=== PATIENT | male | born 1965 | race Caucasian/White ===

== ENCOUNTER 2017-05-23 02:03 | Inpatient (IN) | payer MEDICARE, MEDICAID ==
[~2017-05-23] VITALS: Ht 170.2 cm; Wt 55.3 kg
--- NOTE | ~2017-05-23 | OR ---
PATIENT'S NAME: NGOZI ORTIZ [facility] AGE: 52 Y [address] ROOM: [address] [address] LOCATION: [facility] ADMIT DATE: 05/23/2017 OR/Procedure Report DISCHARGE DATE: FAMILY PHYSICIAN: KAUSHIK ANDREW DO ATTENDING PHYSICIAN: CLARK MIRANDA SURGEON: Nicolás Skelton MD CRUMB PACKER: DATE OF PROCEDURE: 05/24/2017 PROCEDURE: The patient had the procedure of a trigger point injection given on 05/24/2017 at 2145 hours. PROCEDURE IN DETAIL: This procedure of a "trigger point" is a combination of 1% lidocaine 8 mL along with 40 mg of 1 mL of methylprednisolone (Kenalog). The indication for this is pain at 2 locations, one in the left glenohumeral joint of the shoulder associated with local tenderness, pain due to overuse, as well as into the right lumbar paraspinal muscle lateral to midline at the L3 region. With a 10 mL syringe and a 26-gauge needle, the medications were given into the locations as described with the patient having no adverse effect. NICOLÁS SKELTON MD JRM/modl /[id number] d: 05/25/17 0009 t: 06/11/17 1632, OPERATIVE SUMMARY
--- NOTE | ~2017-05-23 | DS ---
PATIENT'S NAME: NGOZI ORTIZ [facility] AGE: 52 Y [address] ROOM: [address] [place], [place] [address] [place] [facility] [place]: 05/23/2017 Discharge Summary DISCHARGE DATE: 06/04/2017 FAMILY PHYSICIAN: Cliff [place] DO ATTENDING PHYSICIAN: Nirav Venegas ATTENDING ON THE DAY OF DISCHARGE: Dr. Dara Lundberg. CONSULTING PHYSICIAN: Dr. Jones and Dr. Skelton, Neurology. DISCHARGE DIAGNOSES: 1. Acute encephalopathy, suspect secondary to opiate withdrawal. 2. Chronic pain syndrome. 3. Hypertension, essential. 4. Multiple sclerosis, advanced. 5. Tobaccoism. 6. Rhabdomyolysis, mild. 7. Depression. DISCHARGE MEDICATIONS: 1. Norvasc 5 mg p.o. daily. 2. Celexa 20 mg p.o. q.a.m. 3. Lisinopril 20 mg p.o. q.a.m. 4. Lopressor 50 mg p.o. twice daily. 5. Nicotine transdermal patch 21 mg transdermally daily. 6. Seroquel 25 mg p.o. q.h.s. 7. Tylenol 650 mg p.o. q.6 hours p.r.n. headache. 8. Zyprexa 5 mg p.o. q.h.s. p.r.n. agitation. PERTINENT RADIOLOGIC DATA: 1. MRI of the brain with and without contrast on 05/23/2017 showed changes of extensive chronic bubble growth with a stable overall appearance when compared to that from August 2016. No enhancing mass, midline shift, abnormal extra-axial fluid collection, and no findings of acute ischemic infarct. There was generalized atrophic changes. 2. Chest x-ray on 05/23/2017, no acute infiltrate. 3. Plain films of the sacrum, right hip, left hip on 05/25/2017 showed no acute fracture. These were taken secondary to a fall. PERTINENT LABORATORY DATA: Urine drug screen was positive for opiates on 05/26/2017. CPK was elevated on 05/23/2017 at 771, this decreased to 775 the following day. CK-MB was elevated 8.8, again this was down to 7.2 on serial labs. TSH was normal at 0.898, free T4 normal at 0.8. Vitamin B12 was normal at 308. PATIENT'S NAME: NGOZI ORTIZ [facility] AGE: 52 Y [address] ROOM: [address] [place], [place] [address] [place] [facility] [place]: 05/23/2017 Discharge Summary DISCHARGE DATE: 06/04/2017 FAMILY PHYSICIAN: Cliff [place] DO ATTENDING PHYSICIAN: Nirav Venegas Laboratory data upon admission showed sodium slightly elevated at 148, potassium 4.0, chloride 119, CO2 of 20. LFTs within normal limits. GFR was greater than 90. CBC showed white count 7200, hemoglobin 13.1, MCV 99, platelets 288. HOSPITAL COURSE: Please refer to the admitting H and P dictated by Dr. Venegas for more detailed outline of his presentation. Dr. Venegas did visit with Dr. Skelton about coordinating care. Differential for encephalopathy initially included opioid withdrawal versus multiple sclerosis exacerbation. Dr. Skelton had seen the patient in consultation on 05/24/2017. He did not believe he was having multiple sclerosis exacerbation at that time. There was a concern, however, he was able to be continued to care for himself. Dr. Jones had seen the patient in consultation secondary to the mild elevated CPK numbers, and they also evaluated him with baseline transthoracic echo. Study was within normal limits with an ejection fraction of 65%-70%. A chest x-ray was also obtained and was negative for infiltrate. The UA showed no evidence of infection. Labs were normal in terms of thyroid function, kidney function, liver function, and B12 levels. Troponins were normal. It was felt that the elevated CK was secondary to a low-degree rhabdomyolysis. The patient was admitted on PCU throughout this hospitalization and ultimately felt stable enough to transfer over to the Med-Surg Unit. The patient continued to do fairly well throughout his hospitalization. We did have some issues with hypertension, and amlodipine and lisinopril and beta-pedro were used to help control this. We felt his encephalopathy continued to improve. His chronic pain continued to be a concern, however, the patient seemed quite comfortable throughout his whole hospitalization without any narcotics. The patient was given Seroquel to help in times of agitation. This was dosed nightly and seemed to sha well with the patient. The patient was placed on fall precautions. Citalopram was added to his regimen on 05/27/2017. Discharge planning was being talked about and felt that the patient would best be well served in the alf facility setting. The patient's pain continued to be stable throughout hospitalization while holding his opiates. Ultimately, arrangements were made for wound care management for the patient to be placed at [facility]. DISPOSITION: The patient is being discharged to [facility] on 06/04/2017. He should follow up with Dr. [place] as primary care provider and can see Dr. Skelton in the future as needed in terms of his MS. At this point, we would continue to hold opioid on this patient. The patient is weightbearing as tolerated but should continue to work with therapies and use fall precautions. O2 may be used to keep sats greater than 90%. The patient verbalized understanding of this plan. Thank you for allowing us to help care for this patient. Discharge of this patient took less than 30 minutes. PATIENT'S NAME: NGOZI ORTIZ [facility] AGE: 52 Y [address] ROOM: [place] [address] [place] [facility] [place]: 05/23/2017 Discharge Summary DISCHARGE DATE: 06/04/2017 FAMILY PHYSICIAN: Cliff [place] DO ATTENDING PHYSICIAN: Nirav Venegas RICHARD MEDLEY PA-C FOR MD ALYSSA MARSHALLM/deepakl /[id number] CC: MD Cliff Nelson DO Panayotis-Alain Efstratiou, MD d: 06/05/17 0323 t: 06/07/17 1949, DISCHARGE SUMMARY
--- NOTE | ~2017-05-23 | ECHO ---
Transthoracic Echocardiography Report (TTE) Demographics Patient Name NGOZI ORTIZ Date of Study 05/23/2017 Patient Number [id number] Visit Number [id number] Date of 1965 Room Number [id number] Gender Male Number Age 52 year(s) Referring Arthur Carrillo MD Messaging Architect Nayely Mcconnell, Physician RT,RVT,RDCS Physician Interpreting Karen Anaya Soccer Commentator Physician Rikki JULES Supervising Ordering Arthur Carrillo MD, MD/MLP Physician Nurse [facility] Associate Conclusions Contractility Score Summary Normal Left Ventricular contractility was noted. Summary The estimated left ventricular ejection fraction is 65-70%. Mild concentric left ventricular hypertrophy. Trivial tricuspid regurgitation by color Doppler. Normal right atrial size. The interatrial septum appears aneurysmal. Procedure Type of Study TTE procedure:2D Echocardiogram, M-Mode, Doppler , Color Doppler. Procedure Date Date: 05/23/2017 Start: 01:03 PM Study Location: Inpatient Portable Technical Quality: Limited visualization due to body habitus. Indications:Elevated cardiac enzymes. Additional Indications:Altered mental status. Appropriate Use Criteria: 9 Patient Status: Routine HR: 72 bpm BP: 151/86 mmHg M-Mode/2D Measurements LV Diastolic Dimension: 4.74 cm LV Systolic Dimension: 2.52 cm LV Septum Diastolic: 1.15 cm LV PW Diastolic: 0.73 cm AO Root Dimension: 3.2 cm Cardiac Output: 5.18 l/min AV Cusp Separation: 1.6 cm EF Estimated: 65 % LVOT: 2.1 cm MV EPSS: 0.5 cm LVOT VTI: 20.8 cm LV Stroke volume: 72.01 ml Doppler Measurements AV Peak Velocity: 1.24 m/s MV Peak E-Wave: 0.65 m/s AV Peak Gradient: 6.15 mmHg MV Peak A-Wave: 0.73 m/s AV Mean Gradient: 3 mmHg MV E/A Ratio: 0.89 LVOT Peak Velocity: 1.23 m/s MV P1/2t: 51 msec TR Gradient:6.55 mmHg Estimated RAP:10 mmHg Estimated PASP: 16.55 mmHg Estimated RVSP: 17 mmHg A' Septal Velocity: 0.1 m/s E' Septal Velocity: 0.09 m/s MV E/E' Ratio: 6.9 Findings Left Ventricle Mild concentric left ventricular hypertrophy. The left ventricle is normal in size . Diastolic assessment reveals Grade I diastolic dysfunction . Right Ventricle Normal right ventricle structure and function. Left Atrium The left atrium is mildly dilated. Right Atrium Normal right atrial size. The interatrial septum appears aneurysmal. Mitral Valve Normal mitral valve structure and function. Aortic Valve Normal aortic valve structure and function. Tricuspid Valve Trivial tricuspid regurgitation by color Doppler. Pulmonic Valve Normal pulmonic valve structure and function. Pericardial Effusion No evidence of pericardial effusion. Miscellaneous Visualized portions of the aortic root and ascending aorta appear normal in size. Pleural Effusion No evidence of pleural effusion. Contractility Score LV regional wall motion:(0-Non visualized 1-Normal 2-Hypokinesis 3-Akinesis 4-Dyskinesis 5-Aneurysm) Signature dtt: Sully Jones dtd: 05/23/17 2223 Physician Self Edit
--- NOTE | ~2017-05-23 | CON ---
PATIENT'S NAME: DANK ORTIZ [facility] AGE: 52 Y [address] ROOM: [id number] [place], [place] [address] LOCATION: [facility] ADMIT DATE: 05/23/2017 Consultation DISCHARGE DATE: FAMILY PHYSICIAN: KAUSHIK ANDREW DO ATTENDING PHYSICIAN: CLARK MIRANDA DATE OF CONSULTATION: 05/24/2017 REFERRING PHYSICIAN: Sully Jones MD TIME SEEN: 7:30 p.m. HISTORY OF PRESENT ILLNESS: Mr. Dank Ortiz is a 52-year-old male patient who was transferred here from [facility] with confusion, agitation, and also because he has a history of multiple sclerosis. He is a 52-year-old patient who lives alone. He does have an odd, somewhat unclear history as to who helps him at home. He says that he likes his independence and does his own chores around the house. Apparently, a friend of his named, Levi, comes in and helps him out with shopping. He does have a son who lives in [place] and he does have a niece who lives nearby that often checks in on him. The patient at baseline has a poor knowledge and insight into the nature of his multiple sclerosis. I saw him on my consult tonight and I did not recognize that I had seen him in clinic in the past. He came to our clinic back in August of 2016 for evaluation of long-standing MS, which he had at least from 2007. He had been on no medications at that time due to side effects of an oral MS medication, which caused him to get hair loss he claimed. All in all, I did see the patient on brief follow-ups at other occasions in the past, last time in January when he appeared to be doing fairly well. The patient was placed on a long- acting interferon medication that is given every 2 weeks. It is an injectable medication that the patient gives himself, medication is called Plegridy. When I saw the patient after he had been on the medication for what I believe was a few months, he seemed to be doing quite well. His major issue on the 3 visits that I saw him was chronic low back pain. He had come into our office on a long-acting morphine sulfate, as well as some oxycodone preparation which he would use on a p.r.n. basis. The patient states that he had not used the breakthrough pain medications for quite some time. It is unclear if he was even using the long-acting opiate even up into this time. Prompted the admission was on the day he came to the hospital, he was feeling very lethargic and weak in his arms and his legs. He denied that he had confusion, but I do think that he was a bit confused also at that time. Apparently, he says that he tried to get up from his chair, but was very weak and he accidentally hit the chair and fell down onto the carpeted floor. He denied hitting his head or injuring his body. Apparently, he also could not get up due to his total body weakness. Denied any loss of bowel or bladder function. PATIENT'S NAME: DANK ORTIZ [facility] AGE: 52 Y [address] ROOM: [place] [address] LOCATION: [facility] ADMIT DATE: 05/23/2017 Consultation DISCHARGE DATE: FAMILY PHYSICIAN: KAUSHIK ANDREW DO ATTENDING PHYSICIAN: CLARK MIRANDA He denied biting his tongue. He says that he was fully awake and oriented, but simply was too weak to try to manipulate his body to get up. Apparently, a friend who had checked on him previously that morning called in the evening to see how he was and the patient did not answer the phone. The friend then went over to the house and found him on the floor weak and a bit more lethargic. When he came to the emergency room, he was reported to be combative and possibly even confused. The patient actually has a poor memory of the events. He said that he was just angry to have to go to the hospital and was opposing his visit there by ambulance. Upon his arrival at the ER, a drug toxicology was performed of the urine, which was negative for all major medications of abuse and treatment including opiates. His vital signs were essentially stable, but his blood pressure was briefly elevated, but came down appropriately. His laboratory results essentially were all within normal limits including CBC and complete metabolic panel, coagulation profile. There was no evidence that the patient had signs of alcohol, history or abuse. By physical exam, he did not have any bruises or hematomas. By the next morning, he was answering all questions appropriately, as the night before he was, according to the hospitalist, not answering questions. When I saw the patient, he had gone for a bunch of different tests to evaluate this alteration in his sensorium. Because of a mild elevation in CPK numbers, Cardiology saw the patient. They evaluated him with baseline transthoracic echo. This study was completely within normal limits with a good ejection fraction of 65% to 70% with only mild left ventricular hypertrophy. Chest x- ray was performed to rule out any infiltrate and this was negative. Urinalysis was also performed and this was negative for any evidence of infection. Thyroid function, kidney function, and liver function tests were normal. Troponin levels were normal. B12 level normal at 308. Upon his arrival here at the hospital, because of his agitation, he had received 2 mg of IV Ativan as well as Haldol 5 mg for agitation. He has not had any repeat sedating medication since that time. As I am seeing him today, he is alerting, he is speaking with the nurse and myself. He is still tired. He keeps his eyes closed when he talks. He does not have much elaboration on his history. He has some basic insight into his medical history, but not very broad and cannot answer more deeper questions than simple superficial knowledge of his medical history. He does not know exactly what certain medications he was on in the past. SOCIAL HISTORY: The patient lives alone in [place], [place]. He denies any smoking or alcohol use or any smoking or alcohol use by history. He walks around in his apartment with a walker. Apparently, he does his own chores in his home. He does have a friend who comes around and helps him on occasion to do shopping, but he does not elaborate further. PRIOR MEDICAL HISTORY: PATIENT'S NAME: DANK ORTIZ [facility] AGE: 52 Y [address] ROOM: [id number], [place] [id number] LOCATION: [facility] ADMIT DATE: 05/23/2017 Consultation DISCHARGE DATE: FAMILY PHYSICIAN: KAUSHIK ANDREW DO ATTENDING PHYSICIAN: CLARK MIRANDA Hypertension, depression, chronic pain of the low back, multiple sclerosis diagnosed back in 2009. No known history of [place] or associated coronary artery disease, no history of stroke, absolutely no history of seizures. ALLERGIES: PENICILLIN. FAMILY HISTORY: Mother of a CVA. Father, unknown . CURRENT MEDICATIONS: Include: 1. Metoprolol 25 mg p.o. b.i.d. 2. Lisinopril 20 mg daily. 3. Amlodipine 10 mg p.o. daily. 4. Nicotine patch 21 mg transdermal patch daily. 5. Hydromorphone given at 0.5 mg p.o. q.4 hours p.r.n. severe back pain. This was discontinued due to nonworking effect. REVIEW OF SYSTEMS: Mr. Ortiz is a 52-year-old male patient who has a baseline cognitive impairment with poor insight into situation, and past medical history information is lacking with the patient. He does not know much about his MS history. He does not know what medications that he is on. GI: He denies any diarrhea or constipation. ID: He denies any fevers, stiff neck, upper respiratory tract infections within the past few months. URINARY: He denies urinary frequency or retention. NEUROLOGICAL: He presented here with more in the way of weakness and fatigability of his limbs. He accidentally fell at home, did not lose consciousness, but because of weakness, remained on the carpet in his living room and was unable to get up until a friend came by to take him to the hospital for evaluation. He is now alert and oriented, does not elaborate much. He is not conversational, appears very sleepy. PHYSICAL EXAMINATION: VITAL SIGNS: Showed a pulse of 109 and regular, respirations 18, blood pressure 150/92, temperature 98.2. CRANIAL NERVES: Pupils are symmetric to light and accommodation at 4 mm bilaterally. There is normal facial symmetry and sensation. The patient has normal power of whistling, puffing out the cheeks. He does not have any tongue weakness. The uvula was midline. He has no nasal quality to his voice. NECK: Flexible, nontender. He has normal power on flexion and extension. EXTREMITIES: In all his extremities, he has somewhat diminished general PATIENT'S NAME: DANK ORTIZ [facility] AGE: 52 Y [address] ROOM: [id number], [place] [address] LOCATION: [facility] ADMIT DATE: 05/23/2017 Consultation DISCHARGE DATE: FAMILY PHYSICIAN: KAUSHIK ANDREW DO ATTENDING PHYSICIAN: CLARK MIRANDA weakness, but he attains nearly 5/5 power in the bilateral upper extremities. Tone of the upper extremities is normal. Lower extremities, tone is actually quite good, bit more tone on the left leg. He is able to elevate his proximal leg and extend out his lower leg to a power of 4+/5. Dorsiflexion, plantar flexion, and eversion of the feet is the weakest at grade 4-/5. Reflexes are trace at the patella and +1 at the ankles. There was no clonus. Plantar reflexes and downgoing toes. His upper extremity reflex is +1 at the biceps and triceps. Sensory exam is completely intact to light touch and to pinprick. Testing of coordination on finger to nose, the patient performed this in the right hand, but due to some subjective weakness with the patient's shoulder, he could not perform [id number]. IMPRESSION: The etiology for the patient's lethargy at home, which he said made him accidentally fall on a chair and land on the carpet and not being able to get up from the living room carpet. It is unclear as to why he fell. There is clearly no evidence to support a seizure. The patient says that he was alert, but simply was very weak. He did not feel lightheaded or dizzy at any time. He appears to be somewhat underweight and disheveled. He said that he was not eating very much at home, but he has been eating here in the hospital over the past day. In questioning about his tiredness, he just brushes it off and says that he is tired from lack of sleep. This could simply be what is going on with him and his power on exam does not seem to be particularly weak. I had seen him in the past and I thought that the tone in his lower extremities was increased on the left leg, appears to be normal now. Ultimately, we have to look into this new medication that I put the patient on called Yolanda. It is an interferon medication given twice a week. Perhaps, there has been some change in his level of tiredness and lethargy during the course of the day. Again when I saw him in the office after he had started the medication already, he did not have any issues with it and said he was tolerating the medication well. Nonetheless, I will do some research on the medication for the potential adverse side effects. He had been on multiple medications in the past for multiple sclerosis with the last medication he says was Aubagio, which was stopped due to hair loss. The current medication is good medication due to its frequency only twice a week injectable and thus it encourages more compliance. If somebody could give him a shot or if he gets himself a shot. His social situation is a big question and it is very hard to get his level of ability to take care of himself at home. From the standpoint of his multiple sclerosis, it is stable. Over the course of the past few years, MRIs have been done and basically it showed chronic changes associated with demyelinating disease. 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 This is generally global atrophy of the brain as PATIENT'S NAME: DANK ORTIZ [facility] AGE: 52 Y [address] [place]OM: [id number] [address] LOCATION: [facility] ADMIT DATE: 05/23/2017 Consultation DISCHARGE DATE: FAMILY PHYSICIAN: KAUSHIK ANDREW DO ATTENDING PHYSICIAN: CLARK MIRANDA well. I do not believe that he is having any multiple sclerosis exacerbation associated with weakness. His limb power is quite good. It remains to be seen how he does with ambulation with physical therapy and I will follow along with the hospitalist service here. MD BETH TAYLOR/iwona /[id number] d: 05/25/170 t: 06/11/17 1630, CONSULTATION REPORT
--- NOTE | ~2017-05-23 | CON ---
PATIENT'S NAME: NGOZI ORTIZ [facility] AGE: 52 Y [address] ROOM: [id number] [place], [place] [address] LOCATION: [facility] ADMIT DATE: 05/23/2017 Consultation DISCHARGE DATE: FAMILY PHYSICIAN: KAUSHIK ANDREW DO ATTENDING PHYSICIAN: CLARK MIRANDA REFERRING PHYSICIAN: Sully Jones MD HISTORY OF PRESENT ILLNESS: This is a 52-year-old man, who I am asked to see for elevated CK-myocardial band. The patient was transferred from the [place] [facility] for higher level of care. He has history of severe multiple sclerosis, and the history obtained from the chart is that on 05/22 at 10 a.m., a friend checked on him on the phone, the patient was appropriate and oriented. Then, the same evening when the patient's friend called again, the patient did not answer, so the friend went to his residence and found the patient on the floor incontinent of urine and surrounded by dropped pills and the patient was confused and did not talk appropriately. He was transferred to the emergency room in [place], where he was found to be encephalopathic and was given Haldol and Ativan for sedation. His CT of the head showed atrophy, but no findings of hemorrhage or ischemic stroke. Because the patient has an elevated CK-BM, I am asked to see him. When I examined him in his room, he was awake and oriented. His niece was also present. The patient denies any chest pain or shortness of breath. He says that he fell because his left upper extremity was weak and then after the fall, he could not stand up by himself. He usually ambulates with a walker. His regular neurologist is Dr. Skelton. The patient says that he is not on any specific treatment for his multiple sclerosis because he had experienced some side effects from the last treatment tried. Apparently, there is a history of hypertension and he is on propranolol that the niece thinks he is also taking for tremors. He has no history of myocardial infarction. He has been disabled since 2008. SOCIAL HISTORY: He is , lives alone. He has a grown son, who lives in [place]. The patient smokes cigarettes. Does not drink alcohol. FAMILY HISTORY: His mother from lung cancer and his father from throat cancer. Apparently, there is no history of cardiac disease. MEDICATIONS: His outpatient medications cannot be confirmed, but the list from [facility] mentions: 1. Teriflunomide 40 mg once a day. 2. Citalopram 20 mg once a day. 3. Oxycodone acetaminophen 10/325 one to two tablets every 6 hours as needed. PATIENT'S NAME: NGOZI ORTIZ [facility] AGE: 52 Y [address] ROOM: [id number] [place], [place] [address] LOCATION: [facility] ADMIT DATE: 05/23/2017 Consultation DISCHARGE DATE: FAMILY PHYSICIAN: KAUSHIK ANDREW DO ATTENDING PHYSICIAN: CLARK MIRANDA 4. Peginterferon 1 pen injector subcutaneously, frequency unknown. 5. Prednisone 20 mg as directed. 6. Propranolol 40 mg, frequency unknown. REVIEW OF SYSTEMS: As noted in the history of present illness. PHYSICAL EXAMINATION: GENERAL: This is a thin middle-aged man. VITAL SIGNS: He is 5 feet 7 inches, weighs 59 kg, blood pressure is 154/92, pulse 76, temp is 98.1. HEENT: He has some rash on the right side of his face. He is currently alert and oriented. Head: Normocephalic and atraumatic. NECK: Supple. No carotid bruits. No jugular venous distention. CHEST: Lungs are clear. HEART: Regular first and second heart sounds. No significant murmur. ABDOMEN: Soft and nontender. EXTREMITIES: Lower extremities: No peripheral edema. LABORATORY DATA: His proBNP is normal. Most recent CPK is 675, CK-MB is 7.2, troponin I less than 0.04. Chest x-ray is normal. CBC is also normal. TSH 0.898. His electrocardiogram shows sinus rhythm with left ventricular hypertrophy by voltage with some mild T-wave changes. IMPRESSION: Most likely, the elevated CK is from lying on the floor for several hours, some degree of rhabdomyolysis is expected. I will check an echocardiogram. Otherwise, I have a low suspicion for an acute coronary syndrome. Thank you for allowing me to participate in the care of your patient. PANAYOTIS-MARLENY EFSTRATIOU, MD PE/iwona PATIENT'S NAME: NGOZI ORTIZ [facility] AGE: 52 Y [address] ROOM: [place] [address] LOCATION: [facility] ADMIT DATE: 05/23/2017 Consultation DISCHARGE DATE: FAMILY PHYSICIAN: KAUSHIK ANDREW DO ATTENDING PHYSICIAN: CLARK MIRANDA /[id number] d: 05/23/173 t: 05/24/17 1136, CONSULTATION REPORT
--- NOTE | ~2017-05-23 | HP ---
PATIENT'S NAME: NGOZI ORTIZ [facility] AGE: 52 Y [address] ROOM: [id number] [place], [place] [address] LOCATION: [facility] ADMIT DATE: 05/23/2017 History & Physical DISCHARGE DATE: FAMILY PHYSICIAN: PHYSICIAN, UNKNOWN ATTENDING PHYSICIAN: CLARK MIRANDA DATE OF SERVICE: CHIEF COMPLAINT: Confusion. HISTORY OF PRESENT ILLNESS: This is a 52-year-old male with past medical history remarkable for multiple sclerosis. At baseline, the patient is alert and oriented x3 and he can ambulate with a walker according to the patient's niece. The story is obtained directly from the patient's niece and also from the transferring facilities physician office administrative assistant from [place], [place] given that the patient is currently encephalopathic and cannot provide any history. The story is that 3 days ago was the last time that the patient's niece spoke to him over the phone and he was in his usual health and at that time, the patient told the niece that he ran out of his Percocet and the niece told him to go to see his physician for more refill, but is not sure if he actually went to get more refill or not. That was the last time that the niece spoke to the patient. Today around 10:00 a.m. one of the patient's friends visited him and he was fine around 10:00 a.m. in the morning. However in the early afternoon when the friend tried to get in touch with the patient, the patient would not answer the phone, so the friend went over, over there and found that the patient confused on the floor and EMS was called and the patient was brought to the [place], [place] emergency room for evaluation. I tried to ask the [place], [place] and also tried to ask the patient's niece, who is their friend, but neither of them could give me any details. In the emergency room in [place], [place], the patient on arrival over there was very combative, very agitative, very restless. Blood work including urine drug screen all came back unremarkable. There was no presence of urine opioids. Due to the combativeness, the patient was given 2 mg of IV Ativan and also 5 mg intramuscular Haldol. The patient became drowsy and sleepy and the CT of the brain was performed without contrast, which came back unremarkable. Due to the history of multiple sclerosis and his encephalopathy as well as right now with drowsiness and lethargy, the patient was referred here for further care. REVIEW OF SYSTEMS: Cannot be obtained directly from the patient given that the patient is currently encephalopathic. From talking to the patient's niece over the phone, last time she spoke to him was 3 days ago. He was in his usual state of health. PATIENT'S NAME: NGOZI ORTIZ [facility] AGE: 52 Y [address] ROOM: [id number] [place], [place] [address] LOCATION: [facility] ADMIT DATE: 05/23/2017 History & Physical DISCHARGE DATE: FAMILY PHYSICIAN: PHYSICIAN, UNKNOWN ATTENDING PHYSICIAN: CLARK MIRANDA PAST MEDICAL HISTORY: From the medical records: 1. Hypertension. 2. Depression. 3. Chronic pain syndrome. 4. Multiple sclerosis. ALLERGIES: PENICILLIN, UNKNOWN REACTION. HOME MEDICATIONS: Currently is being reconciled. SOCIAL HISTORY: Cannot be obtained directly from the patient given that he is lethargic. I did speak to the patient's niece over the phone and she told me that the patient is active cigarette smoker, but unsure of the quantity. Denies any illegal drug or any alcohol use. FAMILY HISTORY: According to the patient's niece given that the patient is currently encephalopathic and cannot give me any history. The patient niece told me that the patient's father from stroke at the old age and the mother from lung cancer from old age from heavy smoking. PAST SURGICAL HISTORY: Cannot be obtained directly from the patient given that he is encephalopathic. From the patient's niece over the phone, she told me that he never had any surgery at least for her knowledge. PHYSICAL EXAMINATION: VITAL SIGNS: At the time of my evaluation; temperature was 98, heart rate was 60, respiration was 15, blood pressure was 136/87, saturation was 96% on 2 L nasal cannula. GENERAL APPEARANCE: The patient is drowsy and sleepy. When I did the sternal rub, the patient opened his eyes, but does not follow commands or does not speak. He will go back to sleep after I did the sternal rub. HEENT: Pupils equally round and reactive to light. Pupils size currently is about 3 mm but only reactive very sluggishly to light bilaterally. When I saw him in the emergency room, his pupils were big about 7 mm bilaterally, also reactive very sluggishly to light. The patient is a bit diaphoretic at the moment, but not too much. Nasal turbinates are normal bilaterally. Anicteric sclerae. Dry oral mucosa. NECK: No JVD. PATIENT'S NAME: NGOZI ORTIZ [facility] AGE: 52 Y [address] ROOM: [id number] [place], [place] [address] LOCATION: [facility] ADMIT DATE: 05/23/2017 History & Physical DISCHARGE DATE: FAMILY PHYSICIAN: PHYSICIAN, UNKNOWN ATTENDING PHYSICIAN: CLARK MIRANDA CARDIOVASCULAR: Regular rate and rhythm. Normal S1, S2. No murmur. No rubs. No gallops. RESPIRATORY: Clear to auscultation. No rales. No rhonchi. No wheezing. No crackles. ABDOMEN: Soft, nontender, nondistended, bowel sounds present, no mass. EXTREMITIES: No edema in upper or lower extremities. NEUROLOGICAL: Could not be performed given that the patient is drowsy and sleepy and does not follow commands at the moment. On gross examination, there is no obvious facial droop. Cannot assess speech given that the patient does not follow commands right now and is sleeping. SKIN: He has a stage I pressure sore on the sacral area, but there is just skin erythema. There is no skin tear. Otherwise, no rash and no cyanosis. LABORATORY DATA: Currently, our labs are pending. Laboratory data from the outside facility are grossly unremarkable. Urine drug screen was also negative for opioids or any other tested drugs. IMAGING STUDIES: CT of the brain without contrast performed from the outside facility prior to transferring here was found as no acute abnormalities. ASSESSMENT AND PLAN: 1. Regarding his acute encephalopathy. Differential here could include opioid withdrawal given that the patient ran out of opioids since 3 days ago. It is not quite clear if the patient has been having opioid refilled at home. However, his urine drug screen for opioid was tested negative from the outside facility today prior to transferring here. In the emergency room, the patient was diaphoretic and HR in the 80s and pupils were dilated bilaterally all this could point to the possibility of opioid withdrawal given that the patient was also restless in the emergency room at [place], [place]. However he was given 5 mg of intramuscular Haldol and also 2 mg IV Ativan for the agitation and then the patient became drowsy and lethargic right now. For this reason, I am going to give him 1 dose of IV flumazenil to reverse the sedative effect of the IV Ativan to see if he will wake up and become more alert. If he is more alert after the IV flumazenil then we will talk to him and assess him more for the possibility of opioid withdrawal. At that time then p.o. methadone can be given to treat opioid withdrawal. I will check UA and also urine drug screen again using our laboratory. For his encephalopathy, I will also be checking TSH and free T4 to rule out hypothyroidism and also check a vitamin B12 level. 2. Second differential could be multiple sclerosis exacerbation. For this reason, I already spoke to the on-call neurologist, Dr. Nicolás Skelton, PATIENT'S NAME: NGOZI ORTIZ [facility] AGE: 52 Y [address] [id number] [address] LOCATION: [facility] ADMIT DATE: 05/23/2017 History & Physical DISCHARGE DATE: FAMILY PHYSICIAN: PHYSICIAN, UNKNOWN ATTENDING PHYSICIAN: CLARK MIRANDA about the case over the phone and it is quite rare to see this degree of restlessness followed by lethargy in a patient with acute multiple sclerosis exacerbation. Polypharmacy was most likely the cause by IM Haldol and also IV Ativan to cause drowsiness. Either way, high dose steroids for the multiple sclerosis exacerbation was not recommended by the on-call neurologist and the plan will be getting an MRI of the brain with and without contrast in equipment tester to rule out possibility of multiple sclerosis exacerbation or even stroke that could explain the patient's current mental state with encephalopathy. The other differential could be cerebrovascular accident, which will be confirmed with the MRI of the brain. I will also get a chest x-ray as well as EKG and the cardiac enzyme and also I will get urinalysis and urine drug screen again to rule out any possible cause of his encephalopathy. Further plan will depend on clinical course. In addition, I will put ETCO2 monitoring at the room at all times to make sure that the patient does not have any respiratory depression or CO2 retention. 3. Regarding his history of multiple sclerosis. As mentioned before, currently there is no indication for high dose steroids unless we confirm multiple sclerosis exacerbation finding on the MRI of the brain. 4. Regarding his depression. In the setting of encephalopathy, we will be holding the antidepressant to not worsen the encephalopathy even more. 5. Regarding his hypertension. I will hold the blood pressure medication right now, it can always be resumed if necessary. Because the patient is encephalopathic, I am giving IV fluids for hydration right now. 6. Regarding his chronic pain syndrome dependent on opioids. As mentioned before, we will give IV flumazenil to reverse the Ativan sedative effect and then assess more for the possibility of opioid withdrawal. 7. He is a DNI, but not DNR. 8. For the DVT prophylaxis, he will be using subcu Lovenox. Time spent in care on the day of admission 60 minutes where 15 minutes was spent on physical examination and the remainder of the time was spent on getting the history by calling the patient's niece over the phone to get a history and also by talking to the transferring facilities physician office administrative assistant to get a history. This time also includes calling the on-call neurologist, Dr. Nicolás Skelton, to talk to him about the case and to coordinate the plan of care with Dr. Skelton for further recommendation and the plan of care. This time also includes a counseling what I explained in detail about the plan of care to the patient and the patient's niece over the phone and answered all her questions to her satisfaction. Further plan will depend on clinical course. The patient lives alone at home by himself and he has a son who lives in [place]. However, the patient niece does not know the name and also does not know the phone number. However, she will try to find out the phone number PATIENT'S NAME: NGOZI ORTIZ [facility] AGE: 52 Y [address] [id number] [address] LOCATION: [facility] ADMIT DATE: 05/23/2017 History & Physical DISCHARGE DATE: FAMILY PHYSICIAN: PHYSICIAN, UNKNOWN ATTENDING PHYSICIAN: CLARK MIRANDA with her mother this morning. The patient's niece will be coming in today this morning to see the patient as well. The patient does not have any power of cancer program coordinator. Further plan will depend on clinical course. MD SUZANNE FARIA/iwona /[id number] D: [id number] T: [id number] HISTORY & PHYSICAL
--- NOTE | 2017-05-23 05:35 | NUR ---
PATIENT ARRIVED TO THE UNIT AT 0402 VIA CART WITH SODDY DAISY STAFF. PATIENT IS SEDATED AND DOES NOT RESPOND TO VERBAL COMMANDS. PATIENT LIVES AT HOME ALONE, EARLIER IN THE WEEK THE PATIENT HAD TALKED TO HIS NEICE AND HE STATED THAT HE HAD RAN OUT [employer]-SHE THEN INSTRUCTED PATIENT TO SEE THE DOCTOR TO GET AT [facility]. A FEW DAYS LATER THE NEICE TRIED TO GET A HOLD OF THE PATIENT AND HE DID NOT ANSWER. NEIGHBORS WENT TO HOUSE TO CHECK ON HIM AND THEY FOUND HIM CRAWLING AROUND ON THE FLOOR CONFUSED AND DISORIENTED. PATIENT WAS TAKEN TO ED IN [place]-HE WAS COMBATIVE AND GIVEN-IV HALDOL AND ATIVAN. UPON ARRIVAL VSS. DOES WITHDRAWAL TO PAINFUL STIMULI. PUPILS ARE 3MM AND SLUGGISH. 150/58, 100%2L, 63, R18, 97.7. HISTORY OF SMOKING AND MS.
[2017-05-23 06:21] LABS: BASOPHIL % 0.3 %; EOSINOPHIL % 0.6 %; HEMATOCRIT 39.4 % (37.0-53.0); HEMOGLOBIN 13.1 g/dL (12.0-17.0); IMMATURE GRANULOCYTE % 0.1 %; LYMPHOCYTE # 1.3 K/uL (0.8-4.0); LYMPHOCYTE % 18.1 %; MCH 33.1 pg (27.0-34.0); MCHC 33.2 gm/dL (32.0-36.5); MCV 99.5 fl (83.0-98.0); MONOCYTE # 0.7 K/uL (0.0-1.0); MONOCYTE % 10.3 %; MPV 9.4 fl (9.4-12.4); NEUTROPHIL # (ANC) 5.1 K/uL (1.4-9.0); NEUTROPHIL % 70.6 %; NRBC % 0 /100WBC (0-0.00); RBC 3.96 M/uL (4.00-6.00); RDW-CV 14.5 % (11.9-14.6); WBC 7.2 K/uL (4.0-11.0)
[2017-05-23 06:28] LABS: INR - (THERAPEUTIC) 0.93 (0.92-1.07); PROTIME 9.8 SECONDS (9.8-11.4); PTT 24 SECONDS (25-32)
[2017-05-23 06:53] LABS: ALBUMIN 3.6 gm/dL (3.5-5.0); ALK PHOS 86 IU/L (33-138); ALT 27 IU/L (12-78); BLOOD UREA NITROGEN 12 mg/dL (6-24); CALCIUM 8.7 mg/dL (8.5-10.5); CO2 20 mMol/L (22-32); CREATININE 0.8 mg/dL (0.6-1.3); TOTAL BILIRUBIN 0.4 mg/dL (0.0-1.5)
[2017-05-23 06:54] LABS: AST 40 IU/L (10-40); CHLORIDE 119 mMol/L (96-110); SODIUM 148 mMol/L (135-145)
--- NOTE | 2017-05-23 06:55 | NUR ---
Significant Event: Patient is sedated. Does not respond to voice or commands. Pupils were 3mm and sluggish to 5mm. VSS. SB-SR. 2-3L of O2 per NC. L) post FA IV- NS at 100ml/hr. Bedrest and NPO until patient becomes more awake. Scattered bruising and abrasions. History of MS, r)sided weakness, and falling. Follow up: Niece will be here today to help with history.
[2017-05-23 07:07] LABS: PLATELET COUNT 288 K/uL (150-450)
--- NOTE | 2017-05-23 10:49 | NUR ---
Stopped in to see Dank and talk with him about dismissal plans. He seemed confused to me and wasn't able to hold a conversation with me, just kept saying, "I need some water, can you get me some water please." I wrote my name on his whiteboad and will come back later today to try to talk with him. Talked with his RN Mary Lou, asked her to tell me if any family came up to see him today as I really would like to talk with them about dismissal plans and what he was like at baseline. Also informed her that he wanted some water. Mary Lou says she will call me if any family comes and he can't have anything to drink at this time until ST comes to evaluate him. In reviewing his chart, it appears that he lives in [place], [place] alone and has a neice listed as his emergency contact. Not sure if he was doing well at home prior to this, but will talk with him and family about this when I see them. CM to continue to follow and assist.
[2017-05-23 12:27] LABS: CPK 675 IU/L (35-332)
--- NOTE | 2017-05-23 14:49 | NUR ---
Significant Event: Patient sedated upon first assessment. Patient withdrew to pain in all 4 extremities. Patient upon 2nd assessment alert to name and . Followed some simple commands and moved all extremities spontaneously. Dystonia noted. Upon 3rd assessment patient oriented X3. Following commands. Moves all extremities spontaneously. Movements are very spastic at times. VSS. Room air with sats in the high 90s. LS clear and diminished. Occasional cough but clears. Large incontinent BM this shift. BS present. Pureed diet with nectar thick liquids. Incontinent of urine. Numerous skin issues. See charting. L) FA PIV SLL this afternoon. PT, OT, and speech on board. Low dose of dilaudid started this shift. Niece at bedside. Patient cooperative with cares. MRI later this shift. Follow up:
--- NOTE | 2017-05-24 04:31 | NUR ---
Significant Event: ALERT/ORIENTED X3. RESTLESS AT TIMES. FOLLOWS COMMANDS. MOVES ALL EXTREMITIES SPONTANEOUSLY AND SPASTICALLY. HYPERTENSIVE SBP UP TO 208. PO BP MEDS STARTED AND PRN IV BP MEDS. LUNGS CLEAR/DIM, SAT 99-100% RA. LARGE INCONTINENT VOID. NO BM. PUREE DIET AND HONEY THICK LIQUIDS. GENERALIZED ECCHYMOSIS, SCATTERED ABRASIONS/SCABS, LEFT BUTTOCK RED/BLANCHABLE. LEFT WRIST PIV SL'D. BEDREST, WILL HAVE PT/OT/ST TODAY. PRN DILAUDID QID LAST AT 2300. Follow up:
[2017-05-24 06:11] LABS: BASOPHIL % 0.1 %; EOSINOPHIL % 0.3 %; HEMATOCRIT 34.8 % (37.0-53.0); HEMOGLOBIN 12.3 g/dL (12.0-17.0); IMMATURE GRANULOCYTE % 0.3 %; LYMPHOCYTE # 1.3 K/uL (0.8-4.0); LYMPHOCYTE % 14.4 %; MCH 33.6 pg (27.0-34.0); MCHC 35.3 gm/dL (32.0-36.5); MCV 95.1 fl (83.0-98.0); MONOCYTE # 0.7 K/uL (0.0-1.0); MONOCYTE % 7.8 %; MPV 8.8 fl (9.4-12.4); NEUTROPHIL # (ANC) 6.7 K/uL (1.4-9.0); NEUTROPHIL % 77.1 %; NRBC % 0 /100WBC (0-0.00); PLATELET COUNT 261 K/uL (150-450); RBC 3.66 M/uL (4.00-6.00); RDW-CV 14.2 % (11.9-14.6); WBC 8.7 K/uL (4.0-11.0)
[2017-05-24 06:24] LABS: ALBUMIN 3.7 gm/dL (3.5-5.0); ANION GAP 9.9 (10.0-19.0); BLOOD UREA NITROGEN 9 mg/dL (6-24); CALCIUM 8.7 mg/dL (8.5-10.5); CHLORIDE 106 mMol/L (96-110); CO2 28 mMol/L (22-32); CREATININE 0.6 mg/dL (0.6-1.3); POTASSIUM 2.9 mMol/L (3.7-5.1); SODIUM 141 mMol/L (135-145)
--- NOTE | 2017-05-24 15:18 | NUR ---
Significant Event: Alert to self, , place and time occasionally. Spastic movements noted. Denies N/T. Denies headache. PERRLA. VSS. Tachycardic this late morning. IV lopressor given X2 and PO metoprolol started BID. No edema. Afebrile. Room air with sats in the high 90s. LS clear and diminished. Occasional cough. Incontinent of large amounts of urine. Pureed diet with thickened liquids. Decreased appetite. Scattered bruising. L) FA PIV SLL. Infused with noc omplications. Heavy 2A or full lift. Dilaudid given for pain. Follow up:
[2017-05-24 16:34] LABS: ALBUMIN 3.7 gm/dL (3.5-5.0); ANION GAP 10.7 (10.0-19.0); BLOOD UREA NITROGEN 9 mg/dL (6-24); CALCIUM 8.9 mg/dL (8.5-10.5); CHLORIDE 107 mMol/L (96-110); CO2 26 mMol/L (22-32); CREATININE 0.8 mg/dL (0.6-1.3); MAGNESIUM 2.2 mg/dL (1.8-2.6); PHOSPHORUS 2.4 mg/dL (2.5-4.9); POTASSIUM 3.7 mMol/L (3.7-5.1); SODIUM 140 mMol/L (135-145)
--- NOTE | 2017-05-25 05:46 | NUR ---
Significant Event: ALERT, ORIENTED TO SELF, PLACE. KNOWS WHAT YEAR OFF AND ON. MAKES CONFUSED STATEMENTS AT TIMES. SPASTIC MOVEMENTS. PAIN/TINGLING TO LEFT ARM. GENERALIZED WEAKNESS. SBP 110S-130S. HR UP TO 150, 80S-90S AFTER PM LOPRESSOR DOSE. 3 LARGE INCONTINENT VOIDS, 1 SMALL INCONTINENT BM. LUNGS CLEAR/DIM ON ROOM AIR. TURN Q2H. FULL LIFT WITH NURSING, STANDS WITH PT/OT. Follow up:
--- NOTE | 2017-05-25 17:31 | NUR ---
Significant Event: VSS. PATIENT ALERT TO SELF AND PLACE. DOES KNOW YEAR AT TIMES. FOLLOWS COMMANDS. DENIES NUMBNESS/TINGLING. GENERALIZED WEAKNESS. TREMORS/SPASTIC MOVEMENTS NOTED. PUPILS 4MM, BRISK. LUNGS CLEAR AND DIM ON ROOM AIR. AT 1118 PATIENT'S CALL LIGHT WAS GOING OFF, TECH ANSWERED IT AND FOUND PATIENT ON THE FLOOR IN FRONT OF HIS CHAIR. THE AARTI/CHAIR ALARM WAS PLUGGED IN BUT DID NOT GO OFF. HE SAID HE WAS TRYING TO CHANGE POSITION AND SLID OUT. PATIENT WAS LIFTED BACK TO BED WITH OVERHEAD LIFT. VSS, HE STATES HIS BOTTOM HURT BUT AT THAT TIME HE TOLD ME IT WAS NORMAL FOR HIM. I GAVE HIM HIS SCHEDULED TRAMADOL. WHEN I CHECKED BACK ON THE PATIENT HE WAS STILL HAVING SACRAL PAIN SO I CALLED DR CONNOLLY BACK AND GOT AN ORDER FOR AN XRAY. THIS IS STILL PENDING AT THE MOMENT. PATIENT'S NEURO ASSESSMENT WAS UNCHANGED. SON, CHANCE AND DAUGHTER CAME SHORTLY AFTER AND ARE AWARE OF HIM FALLING. PATIENT HAS BEEN RESTING WELL IN BED SINCE. ALARMS ON. PATIENT HAS NOT TRIED TO GET OUT OF BED SINCE. HE IS NORMALLY UP WITH A FULL LIFT PER NURSING. PT/OT ARE ON BOARD TO HELP WITH HIS WEAKNESS. CONTINUES ON PUREED DIET WITH NECTAR THICK LIQUIDS, TAKES MEDS ONE AT A TIME. MAY ASK OR SPEECH TO REASSESS TO SEE IF WE CAN ADVANCE DIET. INCONTINENT OF BOWEL AND BLADDER AT TIMES. IV TO LEFT FOREARM SALINE LOCKED. Follow up: FALL THIS SHIFT!! NEURO STATUS. ADVANCE DIET? RED COCCYX(PRIOR TO ADMIT) , ALOE AND TURN!
--- NOTE | 2017-05-26 04:29 | NUR ---
Significant Event: A/O x2. HAS BEEN DISORIENTED TO TIME OR SOMETIMES TO PLACE. GENERALIZED WEAKNESS. ARMS AND LEGS SHAKE. ON RA. ONE INCONTINENT VOID. SOME REDNESS ON COCCYX. IV IN L) WRIST HAS NO COMPLICATIONS. TRIES OFTEN TO SIT UP AND GETS AGITATED WHEN YOU TRY TO HELP HIM. BLADDER SCAN SHOWED 400+ ML'S. ORDERS GIVEN BY DR. MIRANDA FOR STRAIGHT CATH. AND SEROQUEL. Follow up:
[2017-05-26 05:22] LABS: BILIRUBIN URINE NEGATIVE (NEGATIVE); BLOOD URINE NEGATIVE /UL (NEGATIVE); COLOR URINE YELLOW (YELLOW); GLUCOSE URINE NEGATIVE (NEGATIVE); KETONE URINE NEGATIVE (NEGATIVE); LEUKOCYTES URINE NEGATIVE /UL (NEGATIVE); NITRITE URINE NEGATIVE (NEGATIVE); PROTEIN URINE NEGATIVE (NEGATIVE); TURBIDITY URINE CLEAR (CLEAR); UROBILINOGEN URINE 1 mg/dL (NORMAL)
[2017-05-26 05:42] LABS: OPIATES POSITIVE (NEGATIVE)
[2017-05-26 05:43] LABS: AMPHETAMINE NEGATIVE (NEGATIVE); BARBITURATE NEGATIVE (NEGATIVE); COCAINE NEGATIVE (NEGATIVE)
--- NOTE | 2017-05-26 16:29 | NUR ---
Significant Event: a/o to person and place. with third assessment correctly stated year. chronic pain to lower back. scheduled ultram for pain management. room air. tele sinus tach with HR of 105. voided 475 this aftn with bladder scan after of zero. no BM this shift. ambulates with walker/gait belt and two assist. gait unsteady/jerking from m.s. patients son states he wears leg braces at home and he is unable to provide them. takes meds whole. regular diet with mechanical soft meat. IV to left posterior forearm saline locked. does not use call light. 1:1 for impulsivity. son at bedside at this time. states he plans on taking him home to [place] with him when discharged.
[2017-05-27 05:12] LABS: BASOPHIL % 0.1 %; HEMATOCRIT 41.4 % (37.0-53.0); HEMOGLOBIN 14.7 g/dL (12.0-17.0); IMMATURE GRANULOCYTE % 0.4 %; LYMPHOCYTE # 0.9 K/uL (0.8-4.0); LYMPHOCYTE % 10.2 %; MCH 33.9 pg (27.0-34.0); MCHC 35.5 gm/dL (32.0-36.5); MCV 95.6 fl (83.0-98.0); MONOCYTE # 0.8 K/uL (0.0-1.0); MONOCYTE % 8.4 %; MPV 9.2 fl (9.4-12.4); NEUTROPHIL # (ANC) 7.5 K/uL (1.4-9.0); NEUTROPHIL % 80.9 %; NRBC % 0 /100WBC (0-0.00); RBC 4.33 M/uL (4.00-6.00); RDW-CV 13.6 % (11.9-14.6); WBC 9.3 K/uL (4.0-11.0)
[2017-05-27 05:18] LABS: PLATELET COUNT 371 K/uL (150-450)
--- NOTE | 2017-05-27 05:24 | NUR ---
Significant Event: A/O x2, DISORIENTED TO TIME OR SOMETIMES TO PLACE. HR IS SINUS TACHY. 2+ PULSES, NO EDEMA. PATIENT ON RA. SOME REDNESS ON BOTTOM. IV IN L) FOREARM, NO COMPLICATIONS, SALINE LOCKED. TWO INCONTINENT VOIDS. PATIENT IS FORGETFUL. DID NOT SLEEP MUCH, HAS BEEN RESTLESS AND AGITATED MOST OF SHIFT. DR. MIRANDA WROTE FOR ONE TIME ATIVAN, GIVEN AT 0515. TWO ASSIST, WALKER/GAITBELT. Follow up:
[2017-05-27 05:38] LABS: ALBUMIN 3.9 gm/dL (3.5-5.0); BLOOD UREA NITROGEN 19 mg/dL (6-24); CALCIUM 9.8 mg/dL (8.5-10.5); CHLORIDE 104 mMol/L (96-110); CO2 23 mMol/L (22-32); CREATININE 0.9 mg/dL (0.6-1.3); PHOSPHORUS 3.4 mg/dL (2.5-4.9); SODIUM 136 mMol/L (135-145)
[2017-05-27 05:41] LABS: ANION GAP 13.1 (10.0-19.0); POTASSIUM 4.1 mMol/L (3.7-5.1)
--- NOTE | 2017-05-27 14:06 | NUR ---
Call from MIKE Lambert that son would like to talk with me about dismissal plans. Came around to visit with Taylor' son Kanu. Introduced myself and CM role to him. Kanu tells me that he lives in [place], [place] with his and young daughter. He was originally planning on being able to take his dad home with him but after being here a few days and seeing how much help he was going to have to provide for his dad, he doesn't feel safe taking him home at this point. Let him know that this was fine and we could look into SNF placement for him. Kanu states,"I think a short stay at a skilled facility would be great for him, that way he can get stronger and then he can come and live wiht me. I am going to be getting a divorce in the next few months and my lease is up in October at my house in [place], so I plan to move back here once my divorce is finalized and have dad live with me so I can care for him and make sure that he is doing good." Told him that this sounded like a good plan. Kanu states that he has been in contact with his cousin, Mamie, who has found a facility for Dank to go to upon dismissal. I let him know that I had a VM from her on my phone and I was going to call her back as soon as we got done talking. He was fine with this. States that he will probably go back to [facility] and then I can just update him or Mamie via phone call. Kanu cell #[phone] for updates. Kanu says that he has talked with Dank about going to a SNF for a short time and he was fine with it. He says it is just temporary not a manager intermediate thing. No other questions, needs or concerns from Kanu at this time. Dank is currenly a 1:1 sitter and has had some issues today so I don't plan on sending referrals today as no SNF will take him if he is having behaviors or trying to get up out of bed. I phoned Mamie, , updated her to the above conversation. She is in agreement with the above plan and states that she has already talked with the SHANTELLE Auguste, at [facility] in [place], [place] and they will take him there. I let her know that I would fax them a referral either later today or tomorrow once he was off the 1:1 observation. Mamie was fine with this. Let her know that I would keep both her and Chance up to date on what was going on as far as placement goes for Dank. CM to continue to follow and assist.
--- NOTE | 2017-05-27 18:21 | NUR ---
Significant Event: Patient alert to self only this shift. Disoriented to place and time this shift. Follows commands. Confused statements often. Moves extremities spontaneously, restless. On room air. Lungs clear. No bm this shift. Incontinent to bladder at times. PIV SL. Mech soft diet with thin liquids. Poor appetite. Scheduled Tramadol given for pain. Follow up:
--- NOTE | 2017-05-28 04:52 | NUR ---
Significant Event: A/O x1, DISORIENTED TO PLACE AND TIME. 2+ PULSES, NO EDEMA. PATIENT ON RA, CLEAR THROUGHOUT. INCONTINENT VOIDS, NO BM ON MY SHIFT. L) FOREARM IV, SALINE LOCKED, NO COMPLICATIONS. x1 ORDER FOR ZYPREXA 5MG AND ATIVAN 0.5MG TO TREAT RESTLESSNESS AND AGITATION. DR. SANCHEZ DC'D TRAMADOL QID DUE TO ADVERSE REACTION REPORTED BY PATIENT'S NIECE. TWO ASSIST, UNSTEADY GATE. PATIENT'S SON IN ROOM. 1 TO 1 SITTER. Follow up:
--- NOTE | 2017-05-28 11:03 | NUR ---
A - PT SCREENED D/T LOS. DISORIENTED, HX OF MS. PT IS A 1:1. GLU 147, BUN/MANNEQUIN MOLD MAKER 19/0.9, ALB 3.9. CBW: 55KG. DIET: MECH SOFT W/ INTAKE VARYING FROM REFUSED TO 100%. PER MANAGER OF CLINICAL, ATE ~25% BF THIS AM. PT ABLE TO TELL ME HE LIKES ICE CREAM. D - AT RISK W/ INADEQUATE OVERALL INTAKE R/T DECREASED APPETITE AEB INTAKE RECORD. I - GOAL: 50-75% OR BETTER INTAKE. M/E - WILL OFFER ENSURE W/ BF AND DINNER AND MAGIC CUP AT LUNCH. WILL F/U IN 3-5 DAYS.
--- NOTE | 2017-05-28 12:50 | NUR ---
Update from morning huddle that Dank is doing better today and they are going to try to get him out of 1:1 observation if they can. Let them know when he was out, I would make a referral to [facility] ([facility] as that is where family would like for him to go upon dismissal as home alone isn't safe for him at this point. Son, Kanu, still in the room with him and aware of the above plan. CM to continue to follow and assist.
--- NOTE | 2017-05-28 15:47 | NUR ---
Significant Event: Patient alert and oriented to self. Disoriented to person/place. Has been agitated/restless throughout the shift. with 1:1 sitter. Pupils 4 and brisk. Has generalized weakness, 2A pivot. Tachycardic, VSS on room air. Incontinent. L) forearm saline lock. BM on the 05/27. Follow up:Awaiting placement.
--- NOTE | 2017-05-28 17:15 | NUR ---
I have reviewed with agree with Adelfo's charting. MIKE Castellanos
--- NOTE | 2017-05-29 05:03 | NUR ---
Significant Event: A/O x1, DISORIENTED TO PLACE AND TIME. RESTLESS AND AGITATED TOWARD END OF SHIFT. HI/LOW BED. 1 TO 1 SITTER. TACHYCARDIC. PATIENT ON RA. TWO INCONTINENT VOIDS, NO BM. L) FOREARM IV, SALINE LOCKED. RECEIVED TYLENOL PO x2 FOR PAIN. ONE ASSIST, WALKER/GAITBELT, UNSTEADY GAIT. Follow up:
--- NOTE | 2017-05-29 15:59 | NUR ---
Significant Event: VSS. PATIENT ORIENTED TO PERSON ONLY. DOES FOLLOW MOST COMMANDS. GENERALIZED WEAKNESS. DENIES NUMBNESS/TINGLING. PUPILS 4MM, BRISK. LUNGS CLEAR AND DIM ON ROOM AIR. HEART RATE REMAINS TACHY AT TIMES. DID C/O PAIN THIS AM, RELIEVED WITH TYLENOL. INCONTINENT OF BOWEL AND BLADDER. REMAINS IN HI/LOW BED WITH 1:1 . RESTLESS AT TIMES. IV IN RT FOREARM SALINE LOCKED. AWAITING PLAN FOR PLACEMENT ONCE PATIENT RETURNS TO BASELINE AND CAN BE OFF 1:1 Follow up: MONITOR NEURO STATUS. VITALS . 1;1
--- NOTE | 2017-05-29 16:29 | NUR ---
Update from morning rounds that Dank is still a 1:1 sitter and isn't going to be on 15 minute checks anytime soon. Will make SNF referral when appropriate to do so. CM to continue to follow and assist.
--- NOTE | 2017-05-30 03:35 | NUR ---
Significant Event:Patient alert, oriented to self, disoriented place/time. Restless in bed. Moves extremeties spontaneously and to command. Did c/o mild headache early in the shift. Tachy at times HR's in the 100-110's. Pupils equal and reactive. PIV saline locked. Did eat some of dinner this shift. Has not slept for very long this shift. Incontient of bowel/bladder. 1:1 for impulsivity. Follow up:continue to monitor
--- NOTE | 2017-05-30 10:50 | NUR ---
Dank is still 1:1 obervation, but MIKE Ortega tells me that he is clearing up a bit and is working better with therapies so hopefully they will be able to get him off 1:1 and move to 15 minute checks with the goal of getting him off of all checks and then CM can start looking into SNF options for him. CM to continue to follow and assist.
--- NOTE | 2017-05-30 13:32 | NUR ---
A - NUTRITION F/U. A/O X 1. PT IS A 1:1. NO NEW LABS. WT TODAY 106#; WAS 121# TWO DAYS AGO...SUSPECT ERROR. DIET: MECH SOFT, INTAKE SIPS/BITES TO 75%. OFFERED ENSURE BID AND MAGIC CUP QD. BOTANICAL TECHNICAL OFFICER STATES IT TOOK HIM A LONG TIME TO EAT EGGS AND HASHBROWNNS THIS AM, APPEARED TO HAVE DIFFICULTY CHEWING THEM. TRIALED PUREE DIET TEXTURE AT LUNCH AND PT ATE 100%. D - AT RISK W/ INADEQUATE ORAL INTAKE R/T DECREASED APPETITE AND DIFFICULTY CHEWING AEB INTAKE RECORD. I - GOAL: 75-100% INTAKE. M/E - 1) UNABLE TO REACH MD TO CHANGE DIET SO REQUESTED PUREE DIET IN CHART. 2) WILL CONT TO MONITOR INTAKE AND WT. F/U IN 4-6 DAYS.
--- NOTE | 2017-05-30 15:42 | NUR ---
Significant Event: Patient alert and oriented x3 on first assessment. On last assessment was disoriented to time. Drowsy on and off throughout the day. Slept good this morning and early afternoon. 1:1 sitter still, will trial 15 minute checks this afternoon. Sinus tach at times, on lopressor. All other VSS, on room air. Voids per bathroom today, was incontinent last night. Good appetite, pureed diet ordered. IV to R) wrist, saline locked. Follow up:
--- NOTE | 2017-05-31 03:12 | NUR ---
Significant Event:Patient alert, oriented to self, sometimes place time. Reorients easily. Pupils reactive. Moves all extremeties spontaneously and to command. no c/o pain. Has slept most of this shift. Up with 1 assist/gb/walker. On hi/lo bed. PIV saline locked. Slightly tachy at times with hr in the 1110's. Follow up:continue to monitor
--- NOTE | 2017-05-31 14:05 | NUR ---
Update from nursing that Dank is out of 1:1 observations at this time. Will plan to make referrals at the start of next week as all of his nursing notes reflect him being a 1:1 sitter and I don't want that to come in the way of getting placed. I did phone over to [facility], checked to see if they would have any male beds open for the beginning of next week. They do have openings and would be fine with me faxing a referral for them to review on Saturday. CM to continue to follow and assist.
--- NOTE | 2017-05-31 16:12 | NUR ---
Significant Event: Patient oriented to self amd place. Disoriented to time. Muffles/slow speech. Spastic movements at times. PERRLA. Follows commands. Moves everything spontaneously. VSS. Tachycardic at times. Afebrile. Room air with sats in the mid 90s. LS clear and diminished. Voids per toilet. BS active. No BM this shift. Pureed diet with thin liquids. Meds whole with water. Generalized scabs and some bruising. R) FA PIV SLL. No complications. 1 assist gaitbelt walker. Denies pain. Follow up: [facility] status
--- NOTE | 2017-05-31 20:27 | NUR ---
PATIENT TRANSFERRED TO [facility] AT 2018 VIA BED. REPORT GIVEN TO CESAR MCKEON VIA PHONE. PATIENT A&Ox3 BUT FORGETFUL. SPEECH IS SLOW AND MUFFLED. DENIES N/T. TACHYCARDIC AT TIMES. VSS. PATIENT IS ON ROOM AIR WITH CLEAR LUNGS. HAD A SMALL BM AND VOIDS PER RESTROOM. BOWEL SOUNDS ACTIVE. PATIENT HAS SCATTERED BRUISES AND ABRASIONS. TYLENOL GIVEN AT 1940 FOR PAIN. PATIENT AMBULATES 1 ASSIST WITH GB/WALKER. PUREE, THIN LIQUID DIET. R) FOREARM IV SALINE LOCKED.
--- NOTE | 2017-06-01 04:47 | NUR ---
Significant Event: Pt alert and oriented. Forgetful. Bed alarm on at all times. Has not used call light. Follows commands. 1assist with gait belt and walker. Tele on no calls. VSS. Lungs, clear, dimminished. Has depends on and has been continent. Bottom reddened, blanchable. Pureed diet, thin liquids, takes meds whole. Follow up: Awaiting placement.
--- NOTE | 2017-06-01 18:22 | NUR ---
Significant event: Up to BR to void. Walker, gait belt and 1 assist. Alert and oriented, forgetful at times. Tyelnol once for headache and lower back pain.
--- NOTE | 2017-06-02 08:03 | NUR ---
Significant Event: PT RESTED WELL THROUGHOUT SHIFT. WAS COOPERATIVE WITH CARES. VSS ON RA. NEW PERAMETERS FOR METAPROLOL UPDATED. DENIED PAIN THROUGHOUT SHIFT. Follow up:
--- NOTE | 2017-06-02 20:12 | NUR ---
Took over cares about 1500. Patient is calm and cooperative with all cares. Is unsteady with ambulating uses a gait belt and a walker and stand by assist. Ate 100% of dinner this evening. No complaints of pain. IV flushes well with no blood return.
--- NOTE | 2017-06-02 20:41 | NUR ---
Significant event: Up in room with one assist, gait belt and walker. Gait is unsteady. Tylenol for low back pain. Appetite good.
--- NOTE | 2017-06-03 06:08 | NUR ---
Significant Event: PT AAOX3. REG PUREED DIET. RESTED WELL THROUGHOUT SHIFT. COOPERATIVE WITH CARES. Follow up:
--- NOTE | 2017-06-03 12:30 | NUR ---
Call to sabino Hatch, updated her that I was going to fax in/call in a referral to [facility] today as Dank was doing a lot better than last week and then I would call her again and let her know what they determined. Mamie was fine with this. I phoned over to [facility], , talked with SHANTELLE Auguste, gave her a verbal referral and also faxed over a referral to her as well, . Let her know that he would be ready as soon as tomorrow for dismissal. Kalyani says she will review it and then call me back with a determination on if/when they could take. Introduced self and CM role to Dank. Explained to him that I had been working with his son, Kanu and his neice, Mamie re:dismissal plans for him. I understand he was at home prior to this, he confirms this with me. Let him know that going home alone right away wasn't probably the best option for him and this was why I was looking into SNF for him. He was fine with this. He denies any questions, needs or concerns at this time. Let him know I would update him and his family as I knew more about [facility] being able to accept him upon dismissal. CM to continue to follow and assist.
--- NOTE | 2017-06-03 13:19 | NUR ---
A-NUTRITION F/U CBW: 122.5 LBS; WT UP FROM WT AT LAST F/U NO NEW LABS DIET RX: PUREE W/MAGIC CUP QD ANAD ENSURE ENLIVE BID. PO INTAKE HAS BEEN 100% SINCE DIET CHANGE. D-PT NOT AT NUTRITION RISK; NO NUTRITION DX IDENTIFIED I-CONTINUE W/CURRENT NUTRITION INTERVENTIONS TO MAINTAIN NUTRITION STATUS M/E-WILL F/U WITH PO INTAKE, WT, AND POC IN 6-8 DAYS
--- NOTE | 2017-06-03 17:25 | NUR ---
Significant Event: Patient up in chair this a.m. and then back to bed. Tylenol given twice last at 1720 for complaint of a headache. Patient to be transferred tomorrow to SNF. Alert/oriented and able to make needs known. Follow up: Continue to monitor.
--- NOTE | 2017-06-04 07:32 | NUR ---
Significant Event: Patient is alert and oriented x 3. VSS on room air. Up with 1 assist, walker, and gait belt. Hx of MS. BM x 1 this shift. Voids per urinal. Denies any pain. Right forearm IV, saline locked. On pureed diet. Takes pills whole with water. Patient is pleasant and cooperative with cares. Follow up: To be transferred to [facility] today.
[2017-06-04] MEDS ORDERED: LIORESAL DS20 MG PO (09:06)
[2017-06-04] MEDS ORDERED: PERCOCET 10-321 EACH PO (09:07)
[2017-06-04] MEDS ORDERED: INDERAL LA80 MG PO (09:08)
--- NOTE | 2017-06-04 10:01 | NUR ---
Significant Event: Patient up with 1 assist, walker, and gait belt. Tylenol given this a.m. at 0841 for complaint of neck pain that radiated up to his head. Relief noted after tylenol. Last BM noted on 820. Patient given pneumonia vaccine in right arm today per standing order. Patient does have some bruising and abrasions from prior to admission. Patient is continent of both bowel and bladder. Alert/oriented x3. Does need reminded of when pills are due but does ask if he is unsure. Does use weighted silverware to eat with. Does have some weakness noted to left arm. Will transfer to [facility] today at 1100. Follow up: Transfer to [facility].
--- NOTE | 2017-06-04 12:25 | NUR ---
Call up to [facility], talked with monorail charger operator Desiree, confirmed with her that Dank could dismiss today. She states he had a good night so she thinks that he can go. I phoned over to Kalyani at [facility], let her know she could get a van on the road to be here at 1100 like we had planned yesterday and told her I would get orders over to her as soon as rounded on him. Kalyani also faxed over a paper that needed to be signed by so that was left on the chart for her to sign. Stopped in and talked to Dank, he is still in agreement with dismissing today. Voices no concerns about going to [facility]. Dismissal orders and additional SNF paperwork were completed and faxed over to SNF at [phone]. RN to RN report to be called in by MIKE Mathews before he leaves. No other questions, needs or concerns. Plan [facility] today at 1100 via [place] van. CM to continue to follow and assist.
== END 2017-06-04 10:48 | DRG 896 ==
LOC: GICU 03:43 → GMSU 05-31 20:42
PROVIDERS: Family Medicine; ADMIT Internal Medicine
DX: F11.23 Opioid dependence with withdrawal (principal); G92 Toxic encephalopathy; G35 Multiple sclerosis; I10 Essential (primary) hypertension; G89.4 Chronic pain syndrome; T40.605A Adverse effect of unspecified narcotics, initial encounter; M06.9 Rheumatoid arthritis, unspecified; F32.9 Major depressive disorder, single episode, unspecified; Z66 Do not resuscitate; F17.210 Nicotine dependence, cigarettes, uncomplicated
CPT/HCPCS: A9270; A9577; G0009; J1650; J2060; J3480; J7030; J7050; J7060